=== PATIENT | male | born 1975 | race Caucasian/White ===

== ENCOUNTER → 2016-04-16 | Outpatient (CLI) | payer OTHER, MEDICARE ==
--- NOTE | 2016-04-16 12:08 | EST ---
DATE OF SERVICE: 04/16/2016 AGE: 40Y SEX: M HT: 72" WT: 195 lbs. Protocol Florentin: X Other: Stage: III Dur. of Exercise: 6:35 *Heart Rate Blood Pressure *Rest: 105 Rest: 113/65 * *Max. Achieved: 171 Maximum BP: 168/68 85% PMHR: 151 100% PMHR: 178 *METS: 6.7 INDICATIONS: Tachycardia. MEDICATIONS: Viagra. Mr. Carbone is a 40-year-old gentleman being evaluated for symptoms of shortness of breath and palpitations. Baseline EKG showed sinus rhythm and sinus tachycardia with normal DC interval and QRS duration. Blood pressure at rest is 113/65 with the pulse rate of 105. Patient walked on the Florentin protocol for 6 minutes and 35 seconds, achieving a maximum heart rate of 171 with blood pressure of 168/68. Patient did not experience any chest pain. EKGs taken during and after the exercise did not reveal any changes to suggest ischemia. FINAL IMPRESSION: 1. Baseline sinus tachycardia. 2. Negative stress test. 3. Patient did not experience any chest pain. 4. The test was stopped because 85% of predicted heart was achieved and patient was complaining of fatigue.
== END | disposition home or self-care (01) ==
LOC: RADNMMAIN 10:37
PROVIDERS: ATTEND Family Medicine
DX: R00.0 Tachycardia, unspecified (principal); R00.1 Bradycardia, unspecified
CPT/HCPCS: 93017